=== PATIENT | male | born 1935 | race Caucasian/White ===

== ENCOUNTER 2016-09-29 12:19 | Emergency (ER) | payer MEDICARE ==
[~2016-09-29] VITALS: Ht 162.6 cm; Wt 77.0 kg
[2016-09-29] MEDS ORDERED: ESCI5TAB7 PO (13:00)
[2016-09-29] MEDS ORDERED: PRED20TA PO (13:00)
[2016-09-29] MEDS ORDERED: ATOR10TA9 PO (13:00)
[2016-09-29] MEDS ORDERED: SODIUM CHLORIDE FLUSH 10ML SYR IVF ONE (13:00)
[2016-09-29 13:09] LABS: DIFF TOTAL CELLS COUNTED 100 CELL DIFF
[2016-09-29 13:20] LABS: ASPARTATE AMINO TRANSFERASE 28 U/L (15-37); BLOOD UREA NITROGEN 23 mg/dL (7-18)
[2016-09-29 13:25] LABS: IS PT STATUS REG ER OR PRE ER? YES
[2016-09-29 13:28] LABS: VERIFY COUNTS? YES
[2016-09-29] MEDS ORDERED: ALBUTEROL SULFATE 2.5 MG/3 ML NPPB ONE (13:30)
[2016-09-29] MEDS ORDERED: ALBUTEROL SULFATE 2.5 MG/3 ML ONE (13:43)
[2016-09-29] MEDS ORDERED: ACETAMINOPHEN 500 MG TABLET ONE (14:17)
[2016-09-29 14:20] VITALS: BP 125/64
[2016-09-29] MEDS ORDERED: ACETAMINOPHEN 500 MG TABLET PO ONE (14:25)
== END 2016-09-29 14:51 | disposition home or self-care (01) ==
LOC: ED 14:07
DX: E78.00 Pure hypercholesterolemia, unspecified (principal); J44.1 Chronic obstructive pulmonary disease with (acute) exacerbation; Z87.891 Personal history of nicotine dependence
CPT/HCPCS: 36415; 71010; 80053; 83880; 84484; 85025; 93005; 94640; 99285

== ENCOUNTER → 2018-08-31 | Outpatient (CLI) | payer MEDICARE ==
[~2018-08-31] MED LIST: ATOR10TA9 PO; ESCI5TAB7 PO; PRED20TA PO
== END | disposition home or self-care (01) ==
LOC: RAD 07:26
PROVIDERS: ATTEND Internal Medicine Gastroenterology
DX: K22.5 Diverticulum of esophagus, acquired (principal); K22.8 Other specified diseases of esophagus; J44.9 Chronic obstructive pulmonary disease, unspecified
CPT/HCPCS: 74220